=== PATIENT | female | born 1990 | race Caucasian/White ===

== ENCOUNTER 2021-05-18 01:19 | Day surgery (SDC) | payer OTHER, SELFPAY ==
[2021-05-13 18:15] VITALS: BMI 31.1
--- NOTE | 2021-05-13 18:16 | SUR.PREOP ---
Report to the Outpatient Waiting Room, entrance under the green pavilion located off [facility], at time _0600 on date 05/18/21 . OR Time: . - You and your visitor will be asked a series of questions to screen for COVID 19 for your protection. - A mask is required within the hospital. - Only one visitor is allowed at this time. Patient visitors will be guided where to wait when not with patient. Preoperative COVID Testing Requirements: No COVID Test needed if: (proof is required; if not received patient will have Rapid Test prior to entry) - Patient has received COVID Vaccine at least 14 days prior to procedure date or - Patient has positive COVID test result within last 90 days of surgery date. COVID Test needed if above criteria is not met If not COVID vaccinated a COVID test must be conducted within 72 hours of surgery and patient is asked to isolate self from time of testing until procedure. You will go to the [facility] for your COVID testing. The [facility] site is located at the corner of [address] [facility]. You will only be called if COVID results are positive and your surgeon may reschedule your elective surgery date. Patients may have clear liquids (water, carbonated beverages, clear teas, apple juice) until 3 hours prior to surgery with a maximum of 20 ounces. - No food from midnight until time of surgery - Infants may have breast milk until 4 hours before surgery, formula 6 hours prior to surgery. - Children will be allowed to drink immediately following surgery. If applicable, please bring a bottle or sippy cup to assist with drinking. Juice, water, soda, and popsicles are readily available. For infants on formula, please bring formula the day of surgery. Pacifiers are allowed. Take the following medications with a SIP of water the morning of surgery: ___n/a Medications to discontinue per physician ____vitamins Date to take last dose___05/15/21 Please no make-up, nail greenlandic, hairspray, perfume, deodorant, or body powder the day of surgery. No jewelry (including any body piercings) or valuables the day of surgery, leave them at home. Please take a shower or bath the night before, or the morning of, surgery with an antibacterial soap. Wear comfortable, loose fitting clothing. Children are encouraged to wear pajamas. - Jewelry must be removed prior to entering the operating room. Rings and piercings that are not removed may be cut off. - The hospital will not accept responsibility for valuables. - Please leave all valuables, including medications, at home the day of surgery. If you are going home after surgery, a licensed electric pile driver operator must drive you home. - NO public transportation without another adult. - We recommend that an adult stay with you for 24 hours following discharge. - We also recommend that you do not drive, make important decision, drink alcoholic beverages, or take any drugs that were not prescribed by your health care provider for at least 24 hours after your discharge time. For Pediatric surgeries, we recommend two adults accompany the child home (only one inside the building at this time). Follow any additional instructions given to you from your surgeon. Telephone instructions given to _emilio magaña and asked if any additional questions and then verbalized understanding. Patient advised to call surgeon office or pre surgery nurse liaison [phone] if any additional questions.
[2021-05-18] VITALS (7 sets, daily range): BP systolic 86–132; BP diastolic 52–90; PULSE 66–98; RESP 16–20; TEMP 36.6; O2SAT 93–100; BMI 32.5
--- NOTE | 2021-05-18 07:06 | P.PNAN_ITS ---
Anes - Initial Pre Proc Eval Procedure: Operation Date: 05/18/21 07:30 Proposed Procedures p Excision Right Dorsal Wrist Ganglion Cyst - Mehrdad Colby MD Date/Time: 05/18/21 07:06 Surgeon: Mehrdad Colby MD Pre Op Diagnosis: rigth dorsal wrist ganglion cyst Patient Data Age: 31 Gender: F Height: 1.57 m Weight: 80.7 kg Last Vital Signs Temp 36.6 C 05/18/21 06:21 Pulse 98 05/18/21 06:21 Resp 18 05/18/21 06:21 BP 131/90 05/18/21 06:21 Pulse Ox 97 05/18/21 06:21 Allergies Allergy/AdvReac Type Severity Reaction Status Date / Time tramadol Allergy Unknown Itching Verified 05/18/21 06:31 Home Medications Medication Instructions Recorded Confirmed Type niozbjlh-dnl-[id number]-FA 1 tablet PO DAILY 05/13/21 05/18/21 History [] Patient hx anesthesia problems: none Family hx anesthesia problems: none Results Review: All pre-operative results and documents have been reviewed as part of the pre-operative evaluation. [facility] Past Medical History Medical History Anemia Family History Family History Father Family history of hypercholesterolemia Other Family history of chronic obstructive pulmonary disease Social History Social History Smoking status: Never smoker Alcohol intake: never Substance use: never Living arrangements: with family Spiritual care concerns: No Anes - Eval Final PreProcedure Day of Procedure 05/18/21 07:06 Patient weight: obese Heart: regular rate and rhythm Lungs: clear to auscultation Airway: Mallampati scale class 1 Neurological: alert and oriented Last oral intake: >/= 8 hours ASA classification: II Emergent: no Anesthetic plan: proceed Anesthesia type and monitoring: general GIVS and standard monitoring Results Review: All pre-operative results and documents have been reviewed as p art of the pre-operative evaluation. Informed Consent: The patient's anesthetic plan and its attendant risks and benefits were discussed with the patient/family/POA. Questions were solicited and answers provided to the satisfaction of the patient/family/POA.
--- NOTE | 2021-05-18 07:22 | WPDHPUPDATE1 ---
History and Physical Update Update Date/Time: 05/18/21 07:22 History and Physical has been reviewed, including an updated exam of the patient. There are NO changes in the patient's condition. Risks, benefits, and alternatives have been discussed and questions answered. Patient agrees to proceed with procedure.
[2021-05-18] MEDS: LACTATED RINGERS 1,000 ML 30 ML IV CONT (07:27)
[2021-05-18] MEDS: LIDO 1%/EPINEPHRINE/PF 1:200,000 30 ML VIAL INFILTRATE (07:56)
--- NOTE | 2021-05-18 08:22 | W.PM.PROC2 ---
Procedure Note - Detailed Date of Procedure 05/18/21 Pre-op Diagnosis rigth dorsal wrist ganglion cyst Post-op Diagnosis same Procedure Performed Excision right dorsal wrist ganglion cyst Surgeon Mehrdad Colby MD Anesthesia MAC Description of Procedure The appropriate site on the right dorsal wrist was marked on the patient waiting in preop. She was taken to the operating room where she was placed supine on the operating table a time-out was held and confirmed. The extremity was prepped and draped in usual fashion and she was given IV sedation. The site was marked for incision and locally infiltrated with 1% lidocaine with epinephrine. The tourniquet was inflated to 250 mmHg. The transverse incision was made and dissection was carried through the subcutaneous tissue to the flexor tendons. Extensors of the 4th dorsal compartment were and the deep cervical mass was identified. This was dissected around its periphery both sharp and blunt dissection until ruptured. The sac was then followed to its origin and amputated with cautery. The subcutaneous tissue was repaired with 4-0 Monocryl suture. The wound margins were approximated with intradermal 4-0 Monocryl. The usual bandage was applied the tourniquet was released and patient was discharged from the operating room stable condition. A prescription for hydrocodone 6. Was sent to her pharmacy Estimated Blood Loss 1 Drains No Packing No Pathology none sent Complications No immediate complications Condition stable Disposition same day
[2021-05-18] MEDS: oxyCODONE HCL (*CRX) 5 MG TAB IR PO (08:38)
[2021-05-18] MEDS: fentaNYL CITRATE INJ (*CRX) 100 MCG/2 ML VIAL 25 MCG IV PUSH ×5 (08:57→09:29)
[2021-05-18] MEDS: MIDAZOLAM HCL (*CRX) 2 MG/2 ML VIAL IV PUSH (09:25)
== END 2021-05-18 10:25 | disposition home or self-care (01) ==
PROVIDERS: PCP Physician Assistant; Visit Provider Plastic Surgery
PROC: (CPT 25111; principal; 2021-05-18 07:30)
DX: M67.431 Ganglion, right wrist (principal); D64.9 Anemia, unspecified; E66.9 Obesity, unspecified; Z68.32 Body mass index [BMI] 32.0-32.9, adult
CPT/HCPCS: 25111; A9270; J2250; J2704; J3010; J7120

== ENCOUNTER 2021-06-20 12:30 | Outpatient (RCR) | payer OTHER, SELFPAY ==
--- NOTE | 2021-06-07 14:25 | OTOPEVAL ---
OCCUPATIONAL THERAPY INITIAL EVALUATION REPORT 06/07/21 Lauren is a 31 year-old, right handed female who presents to outpatient hand therapy s/p excision of right dorsal wrist ganglion cyst ~3 weeks ago. She reports a functional decline due to residual stiffness following surgery. Skilled OT indicated for instruction in active/passive ROM, thermal modalities, scar tissue management, and strengthening to facilitate optimal functional use of the right wrist/hand and return to work. Plan to see the patient x2 additional visits in prep for release to work by 06/15/21. Thank you for referring Lauren Ward to [facility].? The patient is scheduled to be seen for therapy? 1-2x/week for 2 weeks. Please review, sign, date and return this plan of care CARLY. I agree with and certify that the following plan of care is medically necessary. Referring Physician Date Referring Provider: Mehrdad Colby MD *OT Outpatient Evaluation Start: 06/07/21 13:25 Therapy Assessment Status Assessment Status Assessment Status Evaluation Outpatient Past Medical History Past Medical History Source of Past Medical History Recalled from Previous Visit, Confirmed with Patient/Family Neurological History Hx Neurological Disorders No Significant History Cardiovascular History Hx Cardiac Disorders No Significant History Respiratory History Hx Respiratory Disorders No Significant History Gastrointestinal History Hx Gastrointestinal Disorders No Significant History Genitourinary History Hx Genitourinary Disorders No Significant History Musculoskeletal History Hx Spinal Surgery Yes: spinal bifida and surgery as child Hx Other Musculoskeletal Disorders Yes: toes surgery,right wrist tendon repair Hematological History Hx Hematological Disorders No Significant History Endocrine History Hx Endocrine Disorders No Significant History HEENT History Hx Tonsillectomy Yes Hx Sinus Problems Yes: sinus surgeries x3 Integumentary History Hx Skin Disorders No Significant History Reproductive History Hx Reproductive Disorders No Significant History Psychosocial History Hx Psychiatric Disorders No Significant History Pain History History of Any Previous or Ongoing No Significant History Instance of Pain Anesthesia History Hx Anesthesia Reactions No Significant History Evaluation Information Problem Diagnosis Right wrist stiffness s/p excision of right dorsal wrist ganglion cyst Onset 05/18/21 Subjective Information Patient reports pain and Query Text:As Reported By Patient/ tightness with wrist ROM. She Family reports a history of TFCC tears and repair, so she did have some ROM limitations at her baseline, but reports
--- NOTE | 2021-06-09 13:22 | PCOTNOTE ---
Patient called and canceled due to the weather.
--- NOTE | 2021-06-20 13:22 | OTOPEVAL ---
OCCUPATIONAL THERAPY RE-EVALUATION AND DISCHARGE REPORT 06/20/21 Lauren is a 31 year-old, right handed female who presents to outpatient hand therapy s/p excision of right dorsal wrist ganglion cyst ~4.5weeks ago. 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 Measurements today show patient has returned to functional limits with ROM and strength. She continues to have scar tissue and adhesions that limit full wrist flexion with finger flexion, but she demonstrates excellent understanding of her home program to continue to work on this. Recommended that she continues to do her HEP diligently for another 6 weeks for optimal results. Discharging today with HEP. Patient in agreement with D/C. Thank you for referring Lauren Ward to [facility]. Please review, sign, date and return this D/C Summary CARLY. I agree with and certify that the following plan of care is medically necessary. Referring Physician Date Referring Provider: Mehrdad Colby MD *OT Outpatient Re-Evaluation Start: 06/07/21 13:25 Problem Diagnosis Right wrist stiffness s/p excision of right dorsal wrist ganglion cyst Onset 05/18/21 Subjective Information Patient reports that she is Query Text:As Reported By Patient/ now able to lift a gallon of Family milk and pour into a cup and lift her son into his car seat. She reports that her ROM is improving also. Pain Assessment Timing of Pain Assessment Timing of Pain Assessment Re-assessment Pain Scale Pain Scale Used Numeric (1 - 10) Self Report Pain Assessment Right Wrist(s) Reported Pain Level 2 Pain Frequency Continuous Lowest Pain Intensity 1 Greatest Pain Intensity 6 Pain Score Pain Score 2: Self Report Interventions Used Interventions Used By Clinicians Education,Exercise,Manual Therapy Techniques,Paraffin Upper Extremity Range of Motion Wrist Range of Motion Right Wrist Flexion - Active 60 Wrist Extension - Active 55 Wrist Radial Deviation - Active 25 Wrist Ulnar Deviation - Active 30 Wrist Range of Motion Comments Flexion improved from 30* Extension improved from 40* RD improved from 15* UD improved from 20* When trying to flex the wrist with fingers curled into a fist, she is only able to flex 30*. This improved from 15*. Finger Range of Motion Right Reason Not Measured WNL/Right Thumb Range of Motion Right Reason Not Measured WNL/Right Hand Cafe Associate/Pinch Strength Assessment Hand Right [employer] Strength (lbs) 52.33
== END 2021-06-21 11:19 | disposition home or self-care (01) ==
LOC: ANHOT 12:30
PROVIDERS: Referring Provider Plastic Surgery; Visit Provider Plastic Surgery
DX: Z48.89 Encounter for other specified surgical aftercare (principal); M25.631 Stiffness of right wrist, not elsewhere classified
CPT/HCPCS: 97018; 97110; 97140; 97165

== ENCOUNTER 2022-01-19 04:56 | Outpatient (RCR) | payer OTHER, SELFPAY ==
[2022-01-20] MEDS: RHO(D) IMMUNE GLOBULIN 300 MCG/2 ML SYRINGE IM (04:56)
== END 2022-04-19 23:59 | disposition home or self-care (01) ==
LOC: ANHOBOP 04:56
PROVIDERS: Visit Provider Obstetrics & Gynecology
DX: Z29.13 Encounter for prophylactic Rho(D) immune globulin (principal); O36.0190 Maternal care for anti-D [Rh] antibodies, unspecified trimester, not applicable or unspecified; Z3A.00 Weeks of gestation of pregnancy not specified
CPT/HCPCS: 36415; 85461; 90384; 96372; J2790

== ENCOUNTER 2022-03-28 07:55 | Inpatient (IN) | payer OTHER, SELFPAY ==
[2022-03-28] VITALS (22 sets, daily range): BP systolic 109–134; BP diastolic 40–79; PULSE 72–237; RESP 18; TEMP 36.2–36.7; BMI 38.7
[2022-03-28 08:53] LABS: Basophils Percent Auto 0.4 % (0.2-1.2); Eosinophils Absolute Auto 0.2 K/mm3 (0-0.3); Eosinophils Percent Auto 1.6 % (0-4.4); Hemoglobin 11.2 g/dL (12.0-15.0); Immature Granulocyte Absolute 0.12 K/mm3 (0.00-0.031); Immature Granulocyte Percent A 1.1 % (0-0.5); Lymphocytes Absolute Auto 1.89 K/mm3 (0.9-3.2); Lymphocytes Percent Auto 17.3 % (18.3-44.2); Mean Corpuscular HGB Conc 32.9 g/dl (32-36); Mean Corpuscular Hemoglobin 30.4 pg (26-34); Mean Corpuscular Volume 92.1 fl (80-100); Mean Platelet Volume 9.7 fl (7.4-10.4); Monocytes Absolute Auto 0.6 K/mm3 (0.1-0.6); Monocytes Percent Auto 5.4 % (2.6-8.5); Neutrophils Absolute Auto 8.1 K/mm3 (1.3-6.7); Neutrophils Percent Auto 74.2 % (45.5-73.1); Platelet Count Result 286 k/mm3 (150-375); Red Blood Count 3.69 M/mm3 (4.2-5.4); Red Cell Distribution Width 12.4 % (11.5-14.5); White Blood Count 10.9 K/mm3 (4.5-10.0)
--- NOTE | 2022-03-28 08:53 | WPDOBADMIT ---
Obstetrics - Admit Note Admission Note: record reviewed. Additions to the history and/or subsequent changes in the physical findings follow. 34 y/o at 39 1/7 weeks here with SROM at 0645 this morning. GBS neg. . AVSS NST reactive TOCO: contractions irregularly ABD soft, nontender, gravid, vertex EXT nontender Cervix 3.5/80/-2. Vertex. SROM. Clear fluid.. A: IUP at term with SROM. P: Augment as needed. Anticipate .
[2022-03-28] MEDS: LACTATED RINGERS 1,000 ML 125 ML IV CONT (09:48)
[2022-03-28] MEDS: OXYTOCIN 30 UNITS/NS 500 ML 30 UNITS/500 ML BAG IV CONT (09:49)
--- NOTE | 2022-03-28 11:38 | PM.OBPNLAB ---
Pain Control Date/time seen: 03/28/22 11:38 Feeling more painful contractions. AVSS NST reactive TOCO: contractions every 3-4 min Cervix /-2 Continue labor.
[2022-03-28] MEDS: fentaNYL CITRATE INJ (*CRX) 100 MCG/2 ML VIAL 50 MCG IV PUSH ×3 (12:13→14:53)
[2022-03-28] MEDS: ONDANSETRON INJ 4 MG/2 ML VIAL IV PUSH (12:21)
--- NOTE | 2022-03-28 14:49 | PM.OBPRVD ---
OB - Delivery Note Procedure Delivery date: 03/28/22 Procedure: Induction method: None Delivery augmentation: Pitocin Delivery monitor: External FHT, External Uterine and Internal Uterine Route of delivery: Laceration Description: None Specimen: Yes (cord blood) Quantitative Blood Loss (ml): 330 Anesthesia type: Pudendal (1% lidocaine) Disposition: PACU Complications: None Narrative: 32 y/o at 39 1/7 weeks gestation who presented to the hospital after a gush of clear fluid. SROM was diagnosed and she was admitted. Oxytocin was administered intravenously for labor augmentation. Anesthesia advised against placing an epidural due to her prior spina bifida surgery. Her labor progressed and her cervix dilated completely. A pudendal nerve block was placed bilaterally with 10 mL 1% lidocaine. The perineum was infiltrated with 4 mL 1% lidocaine as well. She pushed with good effort and delivered the infant's head to the perineum. A loose nuchal cord was splinted and the body delivered. The cord was reduced and the nose and mouth were bulb suctioned. After a delay, the cord was clamped and cut. The infant was handed off the field. Cord blood was collected. The placenta delivered spontaneously and was grossly normal in appearance. The usual 3 vessel cord was noted. There were no lacerations. Needle and instrument counts were correct. The patient was taken to recovery room in stable condition. The went to the nursery in stable condition. I was present and scrubbed for the entire delivery. [place] Baby Date of : 03/28/22 Time of : 14:37 Weeks of gestation at delivery: 39 gender: Female Weight (pounds): 7 Weight (ounces): 6 presentation: vertex position: Left Occiput Anterior Placenta delivery description: Spontaneous and Normal Configuration Cord Vessel Description: 3 Vessels, Nuchal Cord (x 1) and Delayed Cord Clamping score one minute: 8 score five minutes: 9
[2022-03-28] MEDS: IBUPROFEN 600 MG TABLET (15:47)
[2022-03-28] MEDS: WITCH HAZEL 40 PADS 1 PAD (15:48)
[2022-03-28] MEDS: BENZOCAINE 20% AER SPR (*SP) 56 GM CAN 1 SPRAY (15:48)
[2022-03-28 16:13] LABS: Rapid Plasma Reagin Non-Reactive (NonReactive)
--- NOTE | 2022-03-28 17:55 | PC.NURSE ---
Patient transferred to post room #277 via wheelchair. Support person present. Oriented to unit, room, information board, rooming in, admission packet and security measures. Patient verbalizes understanding.
[2022-03-28] MEDS: ACETAMINOPHEN 325 MG TABLET 650 MG PO (20:30)
[2022-03-28] MEDS: IBUPROFEN 600 MG TABLET PO (20:32)
[2022-03-29] VITALS: BP 111/57; PULSE 79; RESP 18; TEMP 36.6
[2022-03-29] MEDS: HYDROcodone/acetaminophen (*CRX) 5-325 MG TABLET 1 TAB PO (00:54)
[2022-03-29 04:00] VITALS: BP 107/59; PULSE 71; RESP 18; TEMP 36.7
[2022-03-29 04:09] LABS: Hematocrit 26.3 % (37.0-47.0)
[2022-03-29] MEDS: IBUPROFEN 600 MG TABLET PO ×2 (04:43→12:53)
[2022-03-29] MEDS: HYDROcodone/acetaminophen (*CRX) 10-325 MG TABLET 1 TAB PO ×4 (04:46→17:30)
[2022-03-29 08:00] VITALS: PULSE 76; RESP 18; O2SAT 99
--- NOTE | 2022-03-29 08:21 | P.PNOB_ITS ---
OB - PN: Subj Subjective Date/time seen: 03/29/22 08:21 Narrative: Pain OK. Would like to go home. OB - PN: Obj Data Labs 03/29/22 03:56 Labs: Laboratory Results - last 24 hr 03/28/22 03/28/22 03/28/22 08:39 08:39 08:39 WBC 10.9 H RBC 3.69 L Hgb 11.2 L Hct 34.0 L MCV 92.1 MCH 30.4 MCHC 32.9 RDW 12.4 Plt Count 286 MPV 9.7 Immature Gran % (Auto) 1.1 H Neut % (Auto) 74.2 H Lymph % (Auto) 17.3 L [place] % (Auto) 5.4 Eos % (Auto) 1.6 Baso % (Auto) 0.4 Lymph # (Auto) 1.89 [place] # (Auto) 0.6 Eos # (Auto) 0.2 Baso # (Auto) 0.0 Abs Immat Gran (auto) 0.12 H Absolute Neuts (auto) 8.1 H Absolute Nucleated RBC 0.0 Nucleated RBC % 0.0 RPR Non-reactive Blood Type O Negative Antibody Screen Positive Antibody Identification Passive Due to RH Imm Glob Antigen Identification Cancelled STEVE, IgG Interpret Not Performed STEVE, Poly Interpret Negative STEVE, Complement Interp Not Performed Screen Baby's Blood Type Baby's STEVE Doses of RhIg Required 03/29/22 03/29/22 03:56 03:56 WBC RBC Hgb 9.0 L Hct 26.3 L MCV MCH MCHC RDW Plt Count MPV Immature Gran % (Auto) Neut % (Auto) Lymph % (Auto) [place] % (Auto) Eos % (Auto) Baso % (Auto) Lymph # (Auto) [place] # (Auto) Eos # (Auto) Baso # (Auto) Abs Immat Gran (auto) Absolute Neuts (auto) Absolute Nucleated RBC Nucleated RBC % RPR Blood Type O Negative Antibody Screen Positive Antibody Identification Inconclusive Antigen Identification Cancelled STEVE, IgG Interpret Negative STEVE, Poly Interpret Negative STEVE, Complement Interp Not Performed Screen Negative Baby's Blood Type B pos Baby's STEVE Positive Doses of RhIg Required 1 OB - PN A/P Plan Comments: A: PPD#1, doing well. P: Home to f/u 6 weeks. Exam Psych: Other: AVSS ABD soft, nontender, fundus firm EXT nontender
--- NOTE | 2022-03-29 08:24 | PM.OBDSVD ---
DS: Admitting Diagnosis Discharge Date 03/29/22 Admitting Diagnosis IUP at 39 1/7 weeks SROM DS: Discharge Diagnosis Discharge Diagnosis (1) (normal spontaneous vaginal delivery): Code(s): O80 - Encounter for full-term uncomplicated delivery Status: Acute OB - DS: Summary OB Procedures : None OB Procedures Intrapartum: Spontaneous Vag Delivery OB Procedures: : RHo (D) lg Time Spent with Patient Time attestation: Total time spent providing and/or coordinating discharge services: DS: Data Data Completed and Pending Labs on day of discharge: Labs from last 24 hours 03/29/22 03/29/22 03/28/22 03:56 03:56 08:39 WBC RBC Hgb 9.0 L Hct 26.3 L MCV MCH MCHC RDW Plt Count MPV Immature Gran % (Auto) Neut % (Auto) Lymph % (Auto) [place] % (Auto) Eos % (Auto) Baso % (Auto) Lymph # (Auto) [place] # (Auto) Eos # (Auto) Baso # (Auto) Abs Immat Gran (auto) Absolute Neuts (auto) Absolute Nucleated RBC Nucleated RBC % RPR Blood Type O Negative O Negative Antibody Screen Positive Positive Antibody Identification Inconclusive Passive Due to RH Imm Glob Antigen Identification Cancelled Cancelled STEVE, IgG Interpret Negative Not Performed STEVE, Poly Interpret Negative Negative STEVE, Complement Interp Not Performed Not Performed Screen Negative Baby's Blood Type B pos Baby's STEVE Positive Doses of RhIg Required 1 03/28/22 03/28/22 08:39 08:39 WBC 10.9 H RBC 3.69 L Hgb 11.2 L Hct 34.0 L MCV 92.1 MCH 30.4 MCHC 32.9 RDW 12.4 Plt Count 286 MPV 9.7 Immature Gran % (Auto) 1.1 H Neut % (Auto) 74.2 H Lymph % (Auto) 17.3 L [place] % (Auto) 5.4 Eos % (Auto) 1.6 Baso % (Auto) 0.4 Lymph # (Auto) 1.89 [place] # (Auto) 0.6 Eos # (Auto) 0.2 Baso # (Auto) 0.0 Abs Immat Gran (auto) 0.12 H Absolute Neuts (auto) 8.1 H Absolute Nucleated RBC 0.0 Nucleated RBC % 0.0 RPR Non-reactive Blood Type Antibody Screen Antibody Identification Antigen Identification STEVE, IgG Interpret STEVE, Poly Interpret STEVE, Complement Interp Screen Baby's Blood Type Baby's STEVE Doses of RhIg Required Discharge Plan Discharge Attending physician on discharge: Conrad Gomez Discharging Clinician: Conrad Gomez Patient Disposition: Home, Self-Care Activity: pelvic rest Diet: regular Discharge Instructions: Call or return if temperature above 100.4? F, increased abdominal pain, increased vaginal bleeding or any new problems. Stand Alone Forms: General Discharge Information Follow-up/Referrals: Conrad Gomez MD [Physician] - 6 Weeks Discharge Medications: New ibuprofen 600 mg tablet 600 mg PO Q6H PRN (Reason: cramps) Qty: 30 0RF Continued zalglrgh-afb-Ql-FA 1 mg Tablet 1 tablet PO DAILY Changed hydrocodone-acetaminophen 5-325 mg tablet 1 - 2 tablet PO Q6H PRN (Reason: pain) Qty: 20 0RF Discontinued hydrocodone-acetaminophen 5-325 mg tablet 1 tablet PO Q6H MDD 6 PRN (Reason: pain) Qty: 6 0RF Date of admission: 03/28/22 07:55 Primary Care Provider: PHYSICIAN NOT ON STAFF,NONSTAFF Admitting Provider: Conrad Gomez Attending physician on admission: Conrad Gomez Condition: Stable
[2022-03-29 08:40] VITALS: BP 96/53; PULSE 76; RESP 18; TEMP 37.1; O2SAT 99
[2022-03-29] MEDS: POLYSACCHARIDE IRON COMPLEX 150 MG CAPSULE PO ×2 (09:03→17:29)
[2022-03-29] MEDS: DOCUSATE SODIUM 100 MG CAPSULE PO ×2 (09:03→17:29)
[2022-03-29 11:50] VITALS: BP 88/44; PULSE 88; RESP 16; TEMP 37.4; O2SAT 98
[2022-03-29] MEDS: RHO(D) IMMUNE GLOBULIN 300 MCG/2 ML SYRINGE IM (15:02)
[2022-03-31 10:53] VITALS: BP 118/74; PULSE 86; RESP 16; TEMP 36.8; O2SAT 99
== END 2022-03-29 17:58 | disposition home or self-care (01) | DRG 807 ==
LOC: ANHLDR 08:05 → ANHOB2 18:26
PROVIDERS: Admitting Provider Obstetrics & Gynecology; Visit Provider Obstetrics & Gynecology
DX: O69.81X0 Labor and delivery complicated by cord around neck, without compression, not applicable or unspecified (principal); Z37.0 Single live birth; Z3A.39 39 weeks gestation of pregnancy
CPT/HCPCS: 36415; 85014; 85018; 85025; 85461; 86592; 86850; 86880; 86900; 86901; 90384; A9270; J2405; J2590; J2790; J3010; J7120